=== PATIENT | male | born 1960 | race Caucasian/White ===

== ENCOUNTER 2017-06-27 12:56 | Emergency (ER) | payer BC, OTHER ==
[~2017-06-27] VITALS: Ht 182.9 cm; Wt 168.2 kg
[2017-06-27 13:03] VITALS: BP 143/90; PULSE 70; RESP 16; TEMP 98.3; O2SAT 96
[2017-06-27 13:40] LABS: AUTOMATED NEUTROPHIL # 4.6 TH/MM3 (1.8-7.7); BASOPHIL # 0.1 TH/MM3 (0-0.2); BASOPHIL % 0.7 % (0.0-2.0); EOSINOPHIL # 0.3 TH/MM3 (0-0.4); HEMATOCRIT 41.9 % (39.0-51.0); HEMOGLOBIN 14.8 GM/DL (13.0-17.0); LYMPH % 32.5 % (9.0-44.0); LYMPHOCYTE # 2.7 TH/MM3 (1.0-4.8); MEAN CELL VOLUME 88.6 FL (80.0-100.0); MEAN CORPUSCULAR HEMOGLOBIN 31.4 PG (27.0-34.0); MEAN CORPUSCULAR HGB CONC 35.4 % (32.0-36.0); MEAN PLATELET VOLUME 6.4 FL (7.0-11.0); MONO % 9.1 % (0.0-8.0); MONOCYTE # 0.8 TH/MM3 (0-0.9); NEUT % 54.7 % (16.0-70.0); PLATELET COUNT 300 TH/MM3 (150-450); RED BLOOD COUNT 4.73 MIL/MM3 (4.50-5.90); RED CELL DISTRIBUTION WIDTH 12.8 % (11.6-17.2); WHITE BLOOD COUNT 8.4 TH/MM3 (4.0-11.0)
[2017-06-27 14:03] LABS: ALBUMIN 3.7 GM/DL (3.4-5.0); ALT (GPT) 41 U/L (12-78); AST (GOT) 24 U/L (15-37); BICARBONATE 30.6 MEQ/L (21.0-32.0); BLOOD UREA NITROGEN 14 MG/DL (7-18); CALCIUM 8.5 MG/DL (8.5-10.1); CHLORIDE 102 MEQ/L (98-107); CREATININE 0.91 MG/DL (0.60-1.30); GLOMERULAR FILTRATION RATE 85 ML/MIN (>89); GLUCOSE,RANDOM 85 MG/DL (74-106); SODIUM (NA) 141 MEQ/L (136-145)
[2017-06-27 14:05] LABS: ALKALINE PHOSPHATASE 68 U/L (45-117); TOTAL BILIRUBIN ADULT 0.4 MG/DL (0.2-1.0); TOTAL PROTEIN 7.6 GM/DL (6.4-8.2)
[2017-06-27] MEDS ORDERED: METR1TAB76 PO (14:35)
[2017-06-27] MEDS ORDERED: CIPR-9 PO (14:35)
--- NOTE | 2017-06-27 14:42 | PD ---
HPI Chief Complaint: Abdominal Pain Time Seen by Provider: 14:30 Travel History International Travel<30 days: No Contact w/Intl Traveler<30days: No Traveled to known affect area: No History of Present Illness HPI 57-year-old male presents to the emergency department with right sided middle abdomen pain similar to pain he had 10 years ago when he had diverticulitis. Patient states his started this morning and has progressively gotten somewhat worse. Patient denies fever, chills, nausea, vomiting, or change in his bowels. Patient states he used to have a prescription that he would take when things flared up but he has not done that in 10 years. Patient states he called his physician today who felt he needed a CT scan to rule out appendicitis. Patient currently states the pain is about a 4 out of 10. He states it is mildly sharp. It is not significantly worse with movement at this time. Patient denies urinary symptoms. Labs were drawn in triage as per protocol. Patient has no known drug allergies. [facility] Social History Alcohol Use: Yes Tobacco Use: No Substance Use: No Allergies-Medications Reported Meds & Prescriptions Reported Meds & Active Scripts Active Metronidazole 500 Mg Tab 500 Mg PO TID 7 Days Cipro (Ciprofloxacin HCl) 500 Mg Tab 500 Mg PO BID 7 Days Review of Systems Except as stated in HPI: all other systems reviewed are Neg General / Constitutional: No: Fever, Chills Eyes: No: Visual changes HENT: No: Headaches Cardiovascular: No: Chest Pain or Discomfort Respiratory: No: Shortness of Breath Gastrointestinal: Positive: Abdominal Pain, No: Nausea, Vomiting, Diarrhea, Constipation, Indigestion, Dysphagia (See history of present illness), Loss of Appetite Genitourinary: No: Urgency, Frequency, Dysuria Musculoskeletal: No: Pain Skin: No Rash Neurologic: No: Weakness Psychiatric: No: Depression Endocrine: No: Polydipsia Hematologic/Lymphatic: No: Easy Bruising Physical Exam Narrative GENERAL: Moderately obese male who appears in no acute distress. He is able to read to the room without difficulty. SKIN: Warm and dry. Normal color. Normal turgor. No rash. HEAD: Atraumatic. Normocephalic. EYES: Pupils equal and round. No scleral icterus. No injection or drainage. ENT: No nasal bleeding or discharge. Mucous membranes pink and moist. Pharynx is clear. Airway is patent. NECK: Trachea midline. Supple and nontender. CARDIOVASCULAR: Regular rate and rhythm. RESPIRATORY: No accessory muscle use. Clear to auscultation. Breath sounds equal bilaterally. GASTROINTESTINAL: Abdomen soft, patient has mild to moderate tenderness to the right of the umbilicus without significant guarding or rebound, nondistended. Hepatic and splenic margins not palpable. No CVA tenderness. MUSCULOSKELETAL: Extremities without clubbing, cyanosis, or edema. No obvious deformities. NEUROLOGICAL: Awake and alert. No obvious cranial nerve deficits. Motor grossly within normal limits. Five out of 5 muscle strength in the arms and legs. Normal speech. PSYCHIATRIC: Appropriate mood and affect; insight and judgment normal. Data Data Last Documented VS Vital Signs Date Time Temp Pulse Resp B/P (MAP) Pulse Ox O2 Delivery O2 Flow Rate FiO2 06/27/17 13:03 98.3 70 16 143/90 (107) 96 Room Air Orders Orders Complete Blood Count With Diff (06/27/17 13:25) Comprehensive Metabolic Panel (06/27/17 13:25) Lipase (06/27/17 13:25) Labs Laboratory Tests Test 06/27/17 13:31 White Blood Count 8.4 TH/MM3 Red Blood Count 4.73 MIL/MM3 Hemoglobin 14.8 GM/DL Hematocrit 41.9 % Mean Corpuscular Volume 88.6 FL Mean Corpuscular Hemoglobin 31.4 PG Mean Corpuscular Hemoglobin Concent 35.4 % Red Cell Distribution Width 12.8 % Platelet Count 300 TH/MM3 Mean Platelet Volume 6.4 FL Neutrophils (%) (Auto) 54.7 % Lymphocytes (%) (Auto) 32.5 % Monocytes (%) (Auto) 9.1 % Eosinophils (%) (Auto) 3.0 % Basophils (%) (Auto) 0.7 % Neutrophils # (Auto) 4.6 TH/MM3 Lymphocytes # (Auto) 2.7 TH/MM3 Monocytes # (Auto) 0.8 TH/MM3 Eosinophils # (Auto) 0.3 TH/MM3 Basophils # (Auto) 0.1 TH/MM3 CBC Comment DIFF FINAL Differential Comment Blood Urea Nitrogen 14 MG/DL Creatinine 0.91 MG/DL Random Glucose 85 MG/DL Total Protein 7.6 GM/DL Albumin 3.7 GM/DL Calcium Level 8.5 MG/DL Alkaline Phosphatase 68 U/L Aspartate Amino Transf (AST/SGOT) 24 U/L Alanine Aminotransferase (ALT/SGPT) 41 U/L Total Bilirubin 0.4 MG/DL Sodium Level 141 MEQ/L Potassium Level 3.5 MEQ/L Chloride Level 102 MEQ/L Carbon Dioxide Level 30.6 MEQ/L Anion Gap 8 MEQ/L Estimat Glomerular Filtration Rate 85 ML/MIN Lipase 115 U/L MDM Medical Decision Making Medical Screen Exam Complete: Yes Emergency Medical Condition: Yes Differential Diagnosis Abdominal pain. Diverticulitis. Possible early appendicitis. Narrative Course Labs were within normal limits. Exam is reassuring for diverticulitis without perforation. I do not think CT scan is warranted based on my history and physical and the fact that the patient has previous diagnosis of diverticulitis. I recommend empirical treatment with Cipro and metronidazole for 7 days. Patient is to follow a low residue diet and return to the emergency department if symptoms worsen as discussed. Patient is in agreement and will follow up as needed. Diagnosis Primary Impression: Diverticulitis Referrals: Primary Care Physician Patient Instructions: Diverticulitis (ED), Diverticulitis Diet (DC), General Instructions Additional Instructions: Labs were within normal limits. Exam is reassuring for diverticulitis without perforation. I do not think CT scan is warranted based on my history and physical and the fact that the patient has previous diagnosis of diverticulitis. I recommend empirical treatment with Cipro and metronidazole for 7 days. Patient is to follow a low residue diet and return to the emergency department if symptoms worsen as discussed. Patient is in agreement and will follow up as needed. Med/Other Pt SpecificInfo: Prescription(s) given Scripts Metronidazole (Metronidazole) 500 Mg Tab 500 MG PO TID for Infection for 7 Days, TAB 0 Refills Prov: Anahy Valdez MD 06/27/17 Ciprofloxacin (Cipro) 500 Mg Tab 500 MG PO BID for Infection for 7 Days, #14 TAB 0 Refills Prov: Anahy Valdez MD 06/27/17 Disposition: 01 DISCHARGE HOME Condition: Stable Dimitris Joseph Jun 27, 2017 14:42
== END 2017-06-27 15:03 | disposition home or self-care (01) ==
LOC: NEPD 12:56
DX: K57.92 Diverticulitis of intestine, part unspecified, without perforation or abscess without bleeding (principal)
CPT/HCPCS: 80053; 83690; 85025; 99284